=== PATIENT | male | born 1975 | race Caucasian/White ===

== ENCOUNTER 2019-10-18 19:22 | Emergency (ER) | payer SELFPAY ==
[~2019-10-18] VITALS: Ht 188 cm; Wt 77.1 kg
[2019-10-18 19:25] VITALS: BP 126/60
--- NOTE | 2019-10-18 19:25 | NUR ---
TO [facility]
--- NOTE | 2019-10-18 19:56 | NUR ---
44 Y/O FEMALE PRESENTS WITH BODY ACHES/CHILLS/DRY COUGH BEGINNING YEST. DENIES N/V/D. DENIES ANY SOB/CHEST PAIN. LUNG SOUNDS CLEAR IN BILAT LOBES. BOWEL SOUNDS NORMO ACTIVE IN ALL QUADRANTS. RESP EVEN AND UNLABORED. AAOX4. CAP REFILL <3. VSS. NO PMH NKA
[2019-10-18 20:37] VITALS: BP 126/60
--- NOTE | 2019-10-18 20:37 | NUR ---
Patient discharged with v/s stable. Written and verbal after care instructions given and explained. Patient alert, oriented and verbalized understanding of instructions. Ambulatory with steady gait. All questions addressed prior to discharge. ID band removed. Patient advised to follow up with PMD. Rx of TAMIFLU, GUAIATUSSIN, NAPROSYN given. Patient educated on indication of medication including possible reaction and side effects. Opportunity to ask questions provided and answered.
== END 2019-10-18 20:37 | disposition home or self-care (01) ==
LOC: MED 19:22
DX: J10.1 Influenza due to other identified influenza virus with other respiratory manifestations (principal)
CPT/HCPCS: 87804; 99283

== ENCOUNTER 2021-07-14 10:42 | Emergency (ER) | payer SELFPAY ==
[~2021-07-14] VITALS: Ht 188 cm; Wt 67.6 kg
[~2021-07-14 10:42] MED LIST: BEN10 PO; ONDA4TAB PO
[2021-07-14 10:43] VITALS: BP 101/70
[2021-07-14 11:44] VITALS: BP 101/70
== END 2021-07-14 15:12 | disposition home or self-care (01) ==
LOC: MED 10:42
DX: S43.402A Unspecified sprain of left shoulder joint, initial encounter (principal); S30.0XXA Contusion of lower back and pelvis, initial encounter; W19.XXXA Unspecified fall, initial encounter; Y93.89 Activity, other specified; Y92.89 Other specified places as the place of occurrence of the external cause; Y99.8 Other external cause status
CPT/HCPCS: 99281

== ENCOUNTER 2021-07-16 12:32 | Emergency (ER) | payer SELFPAY ==
[~2021-07-16] VITALS: Ht 190.5 cm; Wt 69.4 kg
[2021-07-16 12:40] VITALS: BP 124/61
[2021-07-16 13:43] LABS: BASOPHILS % (AUTO) 0.3 % (0.0-2.0); EOSINOPHILS # (AUTO) 0.1 K/uL (0-0.4); EOSINOPHILS % (AUTO) 0.8 % (0.0-4.0); HEMATOCRIT 43.3 % (36-52); HEMOGLOBIN 14.6 g/dL (12.0-18.0); LYMPHOCYTES % (AUTO) 27.6 % (20.5-51.1); MEAN CORPUSCULAR HEMOGLOBIN 30 pg (27-31); MEAN CORPUSCULAR HGB CONC 34 g/dL (33-37); MEAN CORPUSCULAR VOLUME 88.8 fL (80-94); MONOCYTES # (AUTO) 0.5 K/uL (0.8-1.0); MONOCYTES % (AUTO) 7.3 % (1.7-9.3); NEUTROPHILS # (AUTO) 4.6 K/uL (1.8-7.7); PLATELET COUNT (AUTO) 308 K/uL (140-450); RED BLOOD CELL COUNT(AUTO) 4.88 MIL/uL (4.20-6.10); RED CELL DISTRIBUTION WIDTH 13.2 % (11.6-13.7); WHITE BLOOD COUNT (AUTO) 7.1 K/uL (4.8-10.8)
[2021-07-16 14:00] VITALS: BP 124/61
== END 2021-07-16 14:01 | disposition home or self-care (01) ==
LOC: MED 12:32
DX: K64.8 Other hemorrhoids (principal)
CPT/HCPCS: 36415; 85025; 99284

== ENCOUNTER 2024-01-14 21:47 | Emergency (ER) | payer SELFPAY ==
[~2024-01-14] VITALS: Ht 188 cm; Wt 72.6 kg
[2024-01-14 22:13] VITALS: BP 107/66; PULSE 62; RESP 16; TEMP 97.3; O2SAT 98
[2024-01-14 23:46] VITALS: BP 112/66; PULSE 63; RESP 16; TEMP 97.8; O2SAT 98
[2024-01-15] MEDS: KETOROLAC 60 MG/2 ML VIAL IM ONE (00:12)
[2024-01-15] MEDS ORDERED: NAPR-337 PO (00:28)
[2024-01-15] MEDS ORDERED: PENI500T20 PO (00:28)
[2024-01-15] MEDS ORDERED: ACET-10509 PO (14:49)
[2024-01-15] MEDS ORDERED: LIDO100S PO (14:49)
== END 2024-01-15 00:42 | disposition home or self-care (01) ==
LOC: MED 21:47
DX: K08.89 Other specified disorders of teeth and supporting structures (principal); Z79.899 Other long term (current) drug therapy
CPT/HCPCS: 96372; 99283; J1885

== ENCOUNTER 2024-01-15 12:59 | Emergency (ER) | payer SELFPAY ==
[~2024-01-15] VITALS: Ht 188 cm; Wt 77.1 kg
[~2024-01-15 12:59] MED LIST changes: +NAPR-337 PO; +PENI500T20 PO
[2024-01-15 13:40] VITALS: BP 107/70; PULSE 63; RESP 18; TEMP 98.6; O2SAT 97
[2024-01-15] MEDS ORDERED: LIDO100S PO (14:49)
[2024-01-15] MEDS ORDERED: ACET-10509 PO (14:49)
[2024-01-15] MEDS: KETOROLAC 30 MG/ML VIAL IM ONE (15:03)
[2024-01-15 15:06] VITALS: BP 137/60; PULSE 74; RESP 18; TEMP 98.7; O2SAT 94
== END 2024-01-15 15:06 | disposition home or self-care (01) ==
LOC: MED 12:59
DX: K02.9 Dental caries, unspecified (principal); Z79.899 Other long term (current) drug therapy
CPT/HCPCS: 96372; 99283; J1885

== ENCOUNTER 2024-02-23 22:31 | Emergency (ER) | payer SELFPAY ==
[~2024-02-23] VITALS: Ht 188 cm; Wt 77.1 kg
[~2024-02-23 22:31] MED LIST changes: +ACET-10509 PO; +LIDO100S PO
[2024-02-23 22:43] VITALS: BP 104/68; PULSE 75; RESP 16; TEMP 97.4; O2SAT 100
[2024-02-23 23:15] VITALS: BP 104/68; PULSE 75; RESP 16; TEMP 97.4; O2SAT 100
== END 2024-02-23 23:15 | disposition home or self-care (01) ==
LOC: MED 22:31
DX: M67.833 Other specified disorders of tendon, right wrist (principal); Z79.899 Other long term (current) drug therapy
CPT/HCPCS: 99282